=== PATIENT | female | born 1985 | race Caucasian/White ===

== ENCOUNTER → 2022-12-16 | Outpatient (CLI) | payer MEDICAID, SELFPAY ==
[2022-12-20 05:06] LABS: Chlamydia By Nucleic Acid AMP Negative (Negative); Gonococcus By Nucleic Acid AMP Negative (Negative)
[2022-12-22 12:09] LABS: HPV APTIMA, High Risk Negative (Negative)
== END | disposition home or self-care (01) ==
LOC: LABSPEC 15:37
PROVIDERS: Referring Provider Registered Nurse; Visit Provider Registered Nurse
DX: Z11.3 Encounter for screening for infections with a predominantly sexual mode of transmission (principal)
CPT/HCPCS: 87491; 87591; 87624; 88175; G0145

== ENCOUNTER → 2022-12-20 | Outpatient (CLI) | payer MEDICAID, SELFPAY ==
[2022-12-20 11:50] LABS: T4 Free Direct 0.96 ng/dL (0.76-1.46); Thyroid Stim Hormone (TSH) 0.95 uIU/mL (0.358-3.74)
[2022-12-25 01:06] LABS: Testosterone Free 2.6 pg/mL (0.0-4.2)
== END | disposition home or self-care (01) ==
PROVIDERS: Referring Provider Registered Nurse; Visit Provider Registered Nurse
DX: N97.0 Female infertility associated with anovulation (principal); N91.5 Oligomenorrhea, unspecified
CPT/HCPCS: 36415; 82627; 84146; 84402; 84439; 84443; 82626

== ENCOUNTER → 2023-02-03 | Outpatient (CLI) | payer MEDICAID, SELFPAY | END | disposition home or self-care (01) | LOC: LABSPEC 15:56 | PROVIDERS: Referring Provider Physician Assistant; Visit Provider Physician Assistant | DX: R39.9 Unspecified symptoms and signs involving the genitourinary system (principal) | CPT/HCPCS: 87077; 87086; 87088; 87186 ==

== ENCOUNTER → 2024-07-12 | Outpatient (CLI) | payer OTHER, SELFPAY ==
[2024-07-17 04:06] LABS: Chlamydia By Nucleic Acid AMP Negative (Negative); Gonococcus By Nucleic Acid AMP Negative (Negative)
== END | disposition home or self-care (01) ==
LOC: LABSPEC 16:46
PROVIDERS: Referring Provider Advanced Practice Midwife; Visit Provider Advanced Practice Midwife
DX: O09.90 Supervision of high risk pregnancy, unspecified, unspecified trimester (principal); Z3A.00 Weeks of gestation of pregnancy not specified
CPT/HCPCS: 87086; 87491; 87591

== ENCOUNTER → 2024-07-12 | Outpatient (CLI) | payer OTHER, SELFPAY ==
[2024-07-12 16:34] LABS: Absolute Lymphocyte Count 2.37 X10^3/uL (0.83-4.51); Absolute Neutrophil Count 8.6 X10^3/uL (2.0-7.7); Basophil# 0.05 X10^3/uL; Basophil% 0.4 % (0-1); Eosinophil# 0.22 X10^3/uL; Eosinophils% 1.8 % (0-5); Hematocrit 40.5 % (37-47); Hemoglobin 13.7 g/dL (12.0-15.0); Lymphocyte # 2.37 X10^3/ul (0.83-4.51); Lymphocyte % 19.3 % (19-41); Mean Corp Hgb Conc 33.8 g/dL (32-36); Mean Corpuscular Hgb 31.2 pg (27.0-32.0); Mean Corpuscular Volume 92.3 fL (81-99); Mean Platelet Vol. 9.8 fl (6.2-12.0); Monocyte# 0.98 X10^3/uL; NRBC Flagged by Analyzer 0 % (0-5); Neutrophil # 8.59 X10^3/uL (2.7-7.7); Neutrophil % 70.1 % (47-70); Platelet Count 286 K/mm3 (150-450); RBC Distribution Width CV 12.2 % (11.6-14.6); RBC Distribution Width SD 41.6 fl (35.1-43.9); Red Blood Count 4.39 M/mm3 (4.2-5.4); White Blood Count 12.3 K/mm3 (4.4-11.0)
[2024-07-12 17:54] LABS: HIV - WCH Non-Reactive (Nonreactive); Hepatitis B Surface Antigen Non-Reactive (Nonreactive); Hepatitis C Antibody Non-Reactive (Nonreactive); Rubella IgG Reactive (Nonreactive); Syphilis Antibodies Non-reactive
== END | disposition home or self-care (01) ==
PROVIDERS: Referring Provider Advanced Practice Midwife; Visit Provider Advanced Practice Midwife
DX: O09.511 Supervision of elderly primigravida, first trimester (principal); Z3A.00 Weeks of gestation of pregnancy not specified
CPT/HCPCS: 36415; 85025; 86703; 86762; 86780; 86803; 86850; 86900; 86901; 87340